=== PATIENT | male | born 1985 | race American Indian/Alaskan Native ===

== ENCOUNTER 2017-11-20 12:48 | Emergency (ER) | payer OTHER ==
[2017-11-20 12:55] VITALS: BP 146/93
--- NOTE | 2017-11-20 14:08 | Emergency Department Report ---
ED Male HPI - General Chief complaint: Urogenital-Male Stated complaint: POSSIBLE STD Time Seen by Provider: 11/20/17 14:02 Source: patient Mode of arrival: Ambulatory Limitations: No Limitations - History of Present Illness Initial comments: 32-year-old -[place] male comes in for complaint of penile discharge that he noticed this a.m. and his boxer shorts. Patient has no other complaints. He denies any nausea no vomiting no fever no chills no testicular pain he is sexually active with females unprotective one partner he does admit to slight discomfort with urination he has no history of STDs. She currently takes no medications has no known drug allergies. MD Complaint: penile discharge -: This morning discharge - Related Data Sexually active: Yes (with females unprotected) Allergies Allergy/AdvReac Type Severity Reaction Status Date / Time No Known Allergies Allergy Unverified 11/20/17 12:54 ED Review of Systems ROS: Stated complaint: POSSIBLE STD Other details as noted in HPI Constitutional: denies: chills, fever Eyes: denies: eye pain, eye discharge, vision change ENT: denies: ear pain, throat pain Respiratory: denies: cough, shortness of breath, wheezing Cardiovascular: denies: chest pain, palpitations Endocrine: no symptoms reported Gastrointestinal: denies: abdominal pain, nausea, diarrhea Genitourinary: discharge Musculoskeletal: denies: back pain, joint swelling, arthralgia Skin: denies: rash, lesions Neurological: denies: headache, weakness, paresthesias Psychiatric: denies: anxiety, depression Hematological/Lymphatic: denies: easy bleeding, easy bruising ED Past Medical Hx - Past Medical History Previous Medical History?: No - Surgical History Past Surgical History?: No - Social History Smoking Status: Current Every Day Smoker Substance Use Type: Alcohol, Marijuana ED Physical Exam - General Limitations: No Limitations General appearance: alert, in no apparent distress - Head Head exam: Present: atraumatic, normocephalic - GI/Abdominal GI/Abdominal exam: Present: soft, normal bowel sounds - exam: Present: normal inspection, urethral discharge, circumcision. Absent: testicular tenderness, scrotal swelling - Neurological Exam Neurological exam: Present: alert, oriented X3, normal gait - Psychiatric Psychiatric exam: Present: normal affect, normal mood - Skin Skin exam: Present: warm, dry, intact, normal color. Absent: rash ED Course Vital Signs 11/20/17 12:52 Temperature 98.7 F Pulse Rate 119 H Respiratory 16 Rate Blood Pressure 146/93 O2 Sat by Pulse 99 Oximetry ED Medical Decision Making - Medical Decision Making Patient has been evaluated by this provider in fast track. GC chlamydial culture obtained and sent to the lab. We will treat patient empirically discussed the patient to have his partner be tested and treated as well. Patient verbalized understanding. Critical care attestation.: If time is entered above; I have spent that time in minutes in the direct care of this critically ill patient, excluding procedure time. ED Disposition Clinical Impression: Penile discharge, Possible exposure to STD Disposition: DC-01 TO HOME OR SELFCARE Is pt being admited?: No Does the pt Need Aspirin: No Condition: Stable Instructions: Sexually Transmitted Diseases (ED) Additional Instructions: He has been treated for presumptive STD exposure. Recommend free to inform near sexual partner to be evaluated and treated as well. He can follow-up with the health department for further evaluation. You can come by medical records here at the hospital to obtain the results. Referrals: PRIMARY CARE [Primary Care Provider] - 3-5 Days [facility] [Outside] - 3-5 Days Forms: Work/School Release Form(ED)
[2017-11-20] MEDS ORDERED: FLAGYL PO ONE (14:12)
[2017-11-20] MEDS ORDERED: ZITHROMAX PO ONE (14:12)
[2017-11-20] MEDS ORDERED: XYLOCAINE 1% MPF 5 mL INFILTRATI ONE (14:12)
[2017-11-20] MEDS ORDERED: ROCEPHIN IM ONE (14:12)
== END 2017-11-20 14:38 | disposition home or self-care (01) ==
LOC: ED 12:48
DX: R36.9 Urethral discharge, unspecified (principal); F17.200 Nicotine dependence, unspecified, uncomplicated; F12.10 Cannabis abuse, uncomplicated
CPT/HCPCS: 87591; 96372; 99282; J0696